=== PATIENT | female | born 2005 | race Caucasian/White ===

== ENCOUNTER 2023-08-20 17:21 | Emergency (ER) | payer OTHER ==
[~2023-08-20] VITALS: Ht 165.1 cm; Wt 63.6 kg
[2023-08-20 19:09] VITALS: BP 116/86
== END 2023-08-20 19:09 | disposition home or self-care (01) ==
LOC: ED 17:21
DX: S80.02XA Contusion of left knee, initial encounter (principal); S00.81XA Abrasion of other part of head, initial encounter; V89.2XXA Person injured in unspecified motor-vehicle accident, traffic, initial encounter; Y92.410 Unspecified street and highway as the place of occurrence of the external cause